=== PATIENT | male | born 1945 | race Caucasian/White ===

== ENCOUNTER 2018-08-21 22:08 | Inpatient (IN) | payer OTHER, MEDICAID ==
[~2018-08-21] VITALS: Ht 182.9 cm; Wt 93.7 kg
[2018-08-21 22:11] VITALS: Ht 182.9 cm; Wt 93.7 kg
--- NOTE | 2018-08-21 22:25 | NUR ---
PT BIB [facility] FROM [facility] FOR C/O OF CP THAT STARTED TODAY. PER MEDICS PT WAS REPORTING A SHARP CHEST PAIN THAT RADIATED UP TO HIS JAW. PER MEDICS [facility] STAFF GAVE PT 325 OF ASPIRIN PO AND UPON MEDICS ARRIVAL ON SCENE PT WAS NO LONGER COMPLAINING OF ANY CP. PER MEDICS PT WAS COMPLAINING OF BODY ACHE, PER MEDICS PT PAINI IS CHRONIC DUE TO PAST INJURIES AND SX. UPON ARRIVAL PT A/O X4. PT COMPLAINS OF 10/10 BODY PAIN AND STATES THAT HE NO LONGER HAS CP. PT BELIEVES HIS PAIN IT DUE TO HE IS NO LONGER TAKING METHADONE FOR HIS PAIN. CRACKLES HEARD WITH AUSCULTATION OF THE LUNGS. PT NOT COMPLAINING OF SOB. PT PLACED ON FULL PRACTICE DIRECTOR. SITTER FROM [facility] AT BEDSIDE, PT IS ON 5250. PT IS A/O X4. RESP ARE EQUAL AND UNLABORED. NO ACUTE DISTRESS NOTED. PT STATED THAT HE DID NOT WANT TO COME TO HOSPITAL SINCE HE NO LONGER HAS CP.
--- NOTE | 2018-08-21 23:03 | NUR ---
2 ATTEMPTS BY MYSELF AT IV WITHOUT SUCCESS.
--- NOTE | 2018-08-21 23:10 | NUR ---
3 ATTMEPTS BY IZABELA MEDINA TO START IV WITHOUT SUCCESS.
--- NOTE | 2018-08-21 23:21 | NUR ---
PT REFUSED FOR NURSE TO ATTEMPT AN IV. PT STATED " TELL THE DOCTOR TO COME HERE AND POKE MY NECK". DR JACKSON MADE AWARE
--- NOTE | 2018-08-21 23:51 | NUR ---
POLITICAL SCIENCE PROFESSOR AT BEDSIDE FOR PROCEDURE
--- NOTE | 2018-08-22 00:33 | NUR ---
2 ATTEMPTS AT IV START BY MD JACKSON WITHOUT SUCCESS. ONE IV ATTEMPT AT THE EJ AND ONE ATTEMPT IN THE RAC ULTRASOUND GUIDED.
--- NOTE | 2018-08-22 00:44 | NUR ---
DIANA GURROLA FROM [facility] CALLED AND GIVEN UPDATE ON PTS STATUS.
--- NOTE | 2018-08-22 01:42 | NUR ---
MD JACKSON AT BEDSIDE TO INSERT CENTRAL LINE.
--- NOTE | 2018-08-22 02:05 | NUR ---
PT RESTING IN BED STATING HIS VALDEZ IS BAD AND REQUESTING ATIVAN TO HELP WITH HIS ANXIETY. MD JACKSON MADE AWARE. PT VITALS ARE WNL. NO ACUTE DISTRESS NOTED. SITTER AT BEDSIDE.
--- NOTE | 2018-08-22 02:38 | NUR ---
MD JACKSON AT BEDSIDE TO INSERT FEMORAL CENTRAL LINE AT THIS TIME.
[2018-08-22] MEDS ORDERED: SEROQUEL25 MG PO (02:44)
--- NOTE | 2018-08-22 03:29 | NUR ---
PT RESTING IN BED AT THIS TIME AND REQUESTING ATIVAN STATING HE IS ANXIOUS. PT SEEMS TO BE IN JOYFUL MOOD AND JOKING WITH MYSELF. MD JACKSON MADE AWARE OF PTS REQUEST. PTS VITALS ARE WNL. NO ACUTE DISTRESS NOTED.
[2018-08-22 03:42] LABS: BASOPHIL % 0.9 % (0-2); PLATELET COUNT 199 x10^3mcL (130-400); RED CELL DISTRIBUTION WIDTH 14.4 % (11.5-14.5)
[2018-08-22 03:45] LABS: CARBON DIOXIDE 29.7 mmol/L (21-32); CHLORIDE SERUM 110 mmol/L (98-107); CREATININE SERUM 0.8 mg/dL (0.7-1.3); GLUCOSE SERUM 106 mg/dL (74-106); POTASSIUM SERUM 3.9 mmol/L (3.5-5.1); SODIUM SERUM 145 mmol/L (136-145)
[2018-08-22 03:49] LABS: ALBUMIN 3.4 g/dL (3.4-5.0); ALKALINE PHOSPHATASE 81 U/L (46-116); ALT/SGPT 12 U/L (16-63); AST/SGOT 20 U/L (15-37); BILIRUBIN TOTAL 0.4 mg/dL (0.20-1.00); TOTAL PROTEIN, SERUM 7.2 g/dL (6.4-8.2)
--- NOTE | 2018-08-22 04:28 | NUR ---
PT RESTING IN BED AT THIS TIME AND STATES THAT HE IS FEELING BETTER RATING HIS PAIN A 5/10. PTS VITAL ARE WNL. NO ACUTE DISTRESS NOTED.
--- NOTE | 2018-08-22 05:40 | NUR ---
PT STATES HE IS UNCOMFORTABLE AND REQUESTING MEDICATIONS FOR HIS PAIN. PT VITALS ARE WNL. NO ACUTE DISTRESS NOTED. PT IN FULL VIEW OF NURSING STATION.
--- NOTE | 2018-08-22 05:49 | NUR ---
PT MEDICATED WITH PRN ORDER OF NORCO FOR HIS PAIN.
[2018-08-22 06:46] LABS: T3 TOTAL 0.99 ng/mL
[2018-08-22 06:47] LABS: CHOLESTEROL/HDL RATIO 4.2; MAGNESIUM 2.3 mg/dL (1.8-2.4); PHOSPHOROUS 3.6 mg/dL (2.5-4.9)
[2018-08-22 06:54] LABS: FREE T4 1.09 ng/dL (0.76-1.46); FREE THYROXINE INDEX 2.6 ug/dL (1.4-4.5); T4(THYROXINE) 7.8 ug/dL (4.7-13.3)
--- NOTE | 2018-08-22 07:30 | NUR ---
REPORT GIVEN TO WALLY GURROLA TO ASSUME CARE OF PT.
[2018-08-22 07:38] VITALS: BP 98/58
--- NOTE | 2018-08-22 07:40 | NUR ---
RECEIVED FROM ER [facility]IA [facility], SEEN AWAKE, ALERT, ORIENTED, ABLE TO WALK FROM [facility] FROM THE HALLWAY TO BED WITH SLOW STEADY GAIT. NO SOB NOTED. V/S CHCKED STABLE. TELE#[address] DENIES CHEST PAIN AT THIS TIME. 5250 HOLD. SITTER 1:1 AT BEDSIDE. PATIENT ASKED FOR KLONOPIN. PLAN OF CARE DISCUSSED. PATIENT AGREED WITH ATIVAN 0.5MG PO AND SEROQUEL PO AT THIS TIME. TLC TO RIGHT FEMORAL WITH DRSG CDI. ORIENTING TO ROOM ENVIRONMENT. CALL LIGHT INSTRUCTED AND PLACED WITHIN EASY REACH. SIDERAILS UP X2. PATIENT REFUSED MRSA SWAB, PATIENT YELLED "YOU'RE NOT GONNA GET ANY OF MY DNA" EXPLAINED THE PURPOSE OF MRSA SWAB, PATIENT STILL REFUSED.
[2018-08-22 07:58] LABS: microscopic required? YES; urine erythrocyte TRACE (NEGATIVE)
[2018-08-22 08:01] LABS: AMPHETAMINE QUAL UR NONE DETECTED (See below)
--- NOTE | 2018-08-22 08:11 | NUR ---
AM SCHEDULED MEDS GIVEN. IVF NS STARTED TO RIGHT GROIN CENTRAL LINE, ALL LUMEN FLUSHED PATENT, JOSE WHITE. GISELE 1:1 AT BEDSIDE FOR 5250 HOLD.
--- NOTE | 2018-08-22 10:15 | NUR ---
DOCTOR LUA AND MEDICAL TEAM AT BEDSIDE FOR AM ROUND.
--- NOTE | 2018-08-22 11:00 | NUR ---
OBTAINED BLOOD SPECIMEN FROM [facility] FOR LAB. PATIENT YELLED AT THE RECRUITING ASSISTANT " GOD DAMN IT"
[2018-08-22 13:06] VITALS: BP 90/63
--- NOTE | 2018-08-22 14:00 | NUR ---
RESTING QUIETLY WITH EYES CLOSED AT THIS TIME.
--- NOTE | 2018-08-22 14:52 | NUR ---
ECHOCARDIOGRAM AT BEDSIDE ONGOING.
--- NOTE | 2018-08-22 15:30 | NUR ---
NORCO 1 TAB PO GIVEN FOR GENERALIZED BODY PAIN PER PATIENT'S REQUESTED. WILL CONTINUE TO MONITOR.
--- NOTE | 2018-08-22 17:05 | NUR ---
NO ANY DISTRESS THROUGHOUT SHIFT. EASILY GET ANGRY AND FRUSTATED. HAD LOOSE BM X1. DENIES NAUSEA. GEN BODY PAIN RELIEF AFTER NORCO 1 TAB PO GIVEN. ATIVAN 0.5MG PO GIVEN X2 FOR AGITATION. DENIES ANY SUICIDAL IDEATION. TLC TO RIGHT FEMORAL ALL LUMENS PATENT, DRSG CDI. SITTER 1:1 AT BEDSIDE.
[2018-08-22 18:20] VITALS: BP 105/63
--- NOTE | 2018-08-22 19:44 | NUR ---
AWAKE AND ALERT, ORIENTED TO NAME, PLACE, TIME AND SITUATION. SPEECH CLEAR AND APPROPRIATE. HOB ELEVATED 30 DEG. BREATHING EVEN AND UNLABORED ON ROOM AIR. CALL LIGHT WITHIN EASY REACH. SITTER IN ROOM. CALM AT THIS TIME, ALTHOUGH DAY SHIFT NURSE REPORTED EPISODES OF AGITATION AND VERBALLY AGGRESSIVE. SINUS RHYTHM ON TELE, WITH PVCS NOTED. DENIES HAVING CHEST PAIN OR CHEST DISCOMFORT
--- NOTE | 2018-08-22 21:19 | NUR ---
PT VOMITTED, STATED FEELS LIKE HAVING HYPERACIDITY. ZOFRAN 4MG ADMINISTERED SLOW IVP. TUMS 1 TABLET ADMINISTERED PO. HOB ELEVATED TO 45 DEG. GOWN AND LINENS CHANGED.
--- NOTE | 2018-08-22 21:36 | NUR ---
LATE ENTRY: - FLUSHED EACH PORT OF CENTRAL LINE TO RIGHT GROIN WITH 5ML NS EACH. ALL PORTS FLUSHED WELL. CAPPED WITH LIGHT BLUE ALCOHOL CAP. DRESSING INTACT.
--- NOTE | 2018-08-22 22:27 | NUR ---
EYES CLOSED, BREATHING EVEN AND UNLABORED. HOB KEPT ELEVATED 45 DEG. CALL LIGHT WITHIN EASY REACH. SITTER IN ROOM.
--- NOTE | 2018-08-22 22:39 | NUR ---
STATED HAVING NO NAUSEA. ASKED FOR ATIVAN TABLET FOR ANXIETY
--- NOTE | 2018-08-22 23:31 | NUR ---
EYES CLOSED, BREATHING EVEN AND UNLABORED ON ROOM AIR. RR 17/MIN. HOB KEPT ELEVATED 40 DEG. CALL LIGHT WITHIN EASY REACH.
[2018-08-23] MEDS ORDERED: NEU300 PO (05:38)
--- NOTE | 2018-08-23 05:38 | NUR ---
PT STATED HE TAKES NEURONTIN 300 MG PO TID AT [facility]. CHECKED RECORDS FROM [facility] AND NOTED NEURONTIN AT STATED DOSE AND FREQUENCY IN PT'S MEDICATION PROFILE. ENTERED INTO RECONCILE MEDS. PAGED DR. SANTAMARIA.
--- NOTE | 2018-08-23 05:41 | NUR ---
DR. PATEL CALLED BACK. INFORMED PT WAS TAKING NEURONTIN 300MG PO TID AT [facility].
[2018-08-23 05:47] VITALS: BP 117/68
--- NOTE | 2018-08-23 06:51 | NUR ---
AWAKE AND ALERT, WATCHING TV. BREATHING UNLABORED. CALL LIGHT WITHIN EASY REACH. SITTER IN ROOM.
--- NOTE | 2018-08-23 07:20 | NUR ---
AAO X4.DENIES ANY PAIN/DISCOMFORT.LUNGS CLEAR.ON SR WITH PVC'S ON THE MONITOR.IV ON R GROIN WITH TLC PATENT.FLUSHING WELL.ON 5250 HOLD FOR DANGER TO SELF AND GRAVELY DISABLED.SITTER AT BEDSIDE.CALL LIGHT WITHIN REACH.INSTRUCTED TO CALL FOR ANY PAIN/DISCOMFORT.WILL CONTINUE TO MONITOR PT.
--- NOTE | 2018-08-23 07:22 | NUR ---
AWAKE AND ALERT, STATED HE WANTS HIS NEURONTIN ONCE AVAILABLE TO BE ADMINISTERED. BREATHING UNLABORED. ENDORSED TO NURSE JEISON
[2018-08-23 08:09] LABS: CALCIUM 9.7 mg/dL (8.5-10.1); CARBON DIOXIDE 24.5 mmol/L (21-32); CHLORIDE SERUM 107 mmol/L (98-107); CREATININE SERUM 0.9 mg/dL (0.7-1.3); GLUCOSE SERUM 112 mg/dL (74-106); POTASSIUM SERUM 4.1 mmol/L (3.5-5.1); SODIUM SERUM 143 mmol/L (136-145)
[2018-08-23 08:25] VITALS: BP 139/62
[2018-08-23 08:35] LABS: BASOPHIL % 0.3 % (0-2); PLATELET COUNT 252 x10^3mcL (130-400); RED CELL DISTRIBUTION WIDTH 13.9 % (11.5-14.5)
--- NOTE | 2018-08-23 09:00 | NUR ---
PT REFUSED TO PUT ON HIS TELE MONITOR.CLAIMS HE DOES NOT NEED IT.PT WANTED TO GO HOME WILL INFORM THE DOCTOR.
--- NOTE | 2018-08-23 11:30 | NUR ---
SPOKE WITH CHARGE NURSE,TARUN ABOUT PT NEEDS TO BE EVALUATED BY PSYCH BEFORE BEING TRANSFERRED BACK TO [facility].
[2018-08-23 12:20] VITALS: BP 109/64
[2018-08-23 13:54] VITALS: BP 109/64
--- NOTE | 2018-08-23 14:09 | NUR ---
PT REFUSED TO EAT LUNCH.CLAIMS TO FEEL ANXIOUS.GAVE HIM ATIVAN ORDERED.
--- NOTE | 2018-08-23 14:54 | NUR ---
PT WANTED TO GO HOME TODAY.INFORMED PT THAT THERE'S AN ORDER FOR PT TO SEE AND THE DOCTOR WILL DECIDE IF HE WILL GO HOME OR NOT.
--- NOTE | 2018-08-23 15:15 | NUR ---
GAVE PT NORCO FOR C/O BODY ACHES.ALSO CLAIMS THAT "THIS IS THE LAST PILL YOU ARE GONNA GIVE ME."I WILL LEAVE AMA WHETHER THEY LIKE IT OR NOT." INFORMED SMITH TALLEY.
--- NOTE | 2018-08-23 15:25 | NUR ---
CHARGE NURSE TARUN WENT AND TALK TO PT.PT GOT AGITATED SCREAMING "GET THE HELL OUT OF HERE" CALLED THE CODE SUE.
--- NOTE | 2018-08-23 15:39 | NUR ---
PT FINALLY CALMED DOWN AFTER SECURITY CAME AND TALK TO HIM.
--- NOTE | 2018-08-23 15:53 | NUR ---
JASMINA TALKED TO CHARGE ACCORDING TO PT HE HAS NOT TAKEN METHADONE FOR 2 WEEKS NOW AND WANTED ME TO CALL NPP IN [facility] TO OBTAIN THE LAST TIME PT TOOK METHADONE AND WHATS'S THE DOSSAGE.CALLED NPP [facility].NO ANSWER.INFORMED CHARGE NURSE TARUN.
--- NOTE | 2018-08-23 16:41 | NUR ---
CENTRAL LINE D/C'D ORDERED.BLUE TIP INTACT.OBSERVED ASEPTIC TECHNIQUE.APPLIED PRESSURE FOR 15 MINUTES.INSTRUCTED PT TO LAY FLAT IN BED FOR A WHILE.PT VERBALIZES UNDERSTANDING.NO BLEEDING ON THE SITE OF THE MOMENT.
--- NOTE | 2018-08-23 16:45 | NUR ---
SMITH TALLEY WANTED HIS CLOTHES OUT OF THE ROOM.INFORMED CHARGE ABOUT THE RISK OF TAKING IT OUT.INSTRUCTED RN TO CALL DIRECTOR OF SOFTWARE DEVELOPMENT.CALLED MARGARITA JEFFREY SUP INFORMED HIM OF WHAT SMITH TALLEY WANT HIS CLOTHES OUT OF THE ROOM,INFORMED WOJCIECH THAT PT IS HOLDING HIS CLOTHES RIGHT NOW. PER WOJCIECH,DO NOT ATTEMPT TO TAKE IT OUT OF HIM TO AVOID GETTING HURT.INFORMED CHARGE NURSE.
--- NOTE | 2018-08-23 16:56 | NUR ---
PT GETTING DRESSED WANTED TO LEAVE AMA.SIGNED AMA FORM.CHARGE NURSE MADE AWARE.CALLED SECURITY TO ESCORT PATIENT.AUTOMATIC OPERATOR NOTIFIED.
--- NOTE | 2018-08-23 17:09 | NUR ---
INFORMED SMITH TALLEY PT IS LEAVING AMA.INSTRUCTED TO CALL [facility] ONCE THE PT IS OUT OF THE HOSPITAL.
--- NOTE | 2018-08-23 17:25 | NUR ---
CALLED [facility]. TALKED TO DISPATCHER LAZARUS.INFORMED HIM PT IS 5250 HOLD PT WAITING FOR ATUL PRADO,UNSURE IF HE IS SAFE,WANTED THEM TO DO WELLNESS CHECK,AND DESCRIBED WHAT'S HE'S WEARING WHICH IS GREEN SHIRT AND BLUEJEANS AND YELLOW SOCKS.
== END 2018-08-23 17:16 | disposition left against medical advice (07) | DRG 880 ==
LOC: ED 22:08 → DU 08-22 05:30
PROVIDERS: Emergency Medicine; ADMIT General Practice
PROC: 06HY33Z Insertion of Infusion Device into Lower Vein, Percutaneous Approach (ICD-10-PCS; principal; 2018-08-22)
DX: F41.9 Anxiety disorder, unspecified (principal); J44.9 Chronic obstructive pulmonary disease, unspecified; I10 Essential (primary) hypertension; Z96.652 Presence of left artificial knee joint; Z68.25 Body mass index [BMI] 25.0-25.9, adult
CPT/HCPCS: 83880; 84439; G0378; J2270; J2405; J7030; Q0092

== ENCOUNTER 2018-08-23 17:45 | Emergency (ER) | payer OTHER, MEDICAID ==
[~2018-08-23] VITALS: Ht 185.4 cm; Wt 95.3 kg
[~2018-08-23 17:45] MED LIST: NEU300 PO; SEROQUEL25 MG PO
[2018-08-23 17:57] VITALS: Ht 185.4 cm; Wt 95.3 kg
[2018-08-25 01:04] VITALS: BP 123/67
== END 2018-08-25 01:04 ==
LOC: ED 17:45
DX: Z04.6 Encounter for general psychiatric examination, requested by authority (principal); J44.9 Chronic obstructive pulmonary disease, unspecified; F32.9 Major depressive disorder, single episode, unspecified; I10 Essential (primary) hypertension
CPT/HCPCS: J2060